=== PATIENT | male | born 1940 | race Caucasian/White ===

== ENCOUNTER 2016-06-29 06:20 | Day surgery (SDC) | payer MEDICARE, OTHER ==
--- NOTE | ~2016-06-29 | EGD ---
EGD REPORT [facility] [address] [place] [address] NAME: CHAR MURPHY : [birth year] STATUS : REG [facility]#: [id number] AGE: 76 ADM/REG DATE : 06/29/16 MR#: [id number] REPORT SERV DATE: 06/29/16 DICTATED BY: CHRIS MORAN DATE: 06/29/16 REPORT STATUS : Draft [facility]ANSCRIBED BY: [facility] DATE: 06/29/16 Endoscopy Center Patient Name: Char Murphy Date of : 1940 Attending MD: CHRIS MORAN MD Procedure Date No Time: 06/29/2016 Procedure: Upper GI endoscopy Indications: Heartburn, Suspected esophageal reflux, Unexplained chest pain, Nausea Referring MD: RITA MELENDEZ Medicines: as per anesthesia Complications: No immediate complications. Procedure: After obtaining informed consent, the endoscope was passed under direct vision. Throughout the procedure, the patient's blood pressure, pulse, and oxygen saturations were monitored continuously. The GIF [id number] was introduced through the mouth, and advanced to the third part of duodenum. The upper GI endoscopy was accomplished without difficulty. The patient tolerated the procedure. Findings: Patchy candidiasis was found in the middle third of the esophagus. brushings done The entire examined stomach was normal. The cardia and gastric fundus were normal on retroflexion. The examined duodenum was normal. Impression: - Monilial esophagitis. - Normal stomach. - Normal examined duodenum. Recommendation: - Follow an antireflux regimen. - Continue present medications. - Await pathology results. Procedure Code(s): --- Professional --- 81409, Esophagogastroduodenoscopy, flexible, transoral; diagnostic, including collection of specimen(s) by brushing or washing, when performed (separate procedure) Diagnosis Code(s): --- Professional --- B37.81, Candidal esophagitis R12, Heartburn R07.9, Chest pain, unspecified EGD REPORT [facility] [address] [facility] [place]. [address] NAME: CHAR MURPHY : [birth year] STATUS : [place] [facility] [place] [id number] AGE: 76 ADM/REG DATE : 06/29/16 MR#: [id number] REPORT SERV DATE: 06/29/16 DICTATED BY: CHRIS MORAN. DATE: 06/29/16 REPORT STATUS : Draft TRANSCRIBED BY: [employer] DATE: 06/29/16 R11.0, Nausea CPT copyright 2013 [employer]. All rights reserved. The codes documented in this report are preliminary and upon modeling instructor review may be revised to meet current compliance requirements. CHRIS MORAN MD 06/29/2016 8:56 AM This report has been signed electronically. Number of Addenda: 0 Note Initiated On: 06/29/2016 8:30 AM Scope Withdrawal Time 0 hours 0 minutes 0 seconds [address] [place] [address]
[~2016-06-29 06:20] MED LIST: COREG12 PO; COREG25 PO; LIPITOR40 PO; PRILOSEC OTC20 MG PO; PRILOSEC40 MG PO; SYMBICORT 160/41 INH INH; VIAGRA100 MG PO
[2016-09-23] MEDS ORDERED: NORV5 PO (15:48)
[2016-09-28] MEDS ORDERED: TRAZ50 PO (20:07)
[2016-09-28] MEDS ORDERED: SYMBICORT 160/41 INH INH (20:07)
[2016-09-28] MEDS ORDERED: PRILOSEC40 MG PO (20:08)
[2016-09-28] MEDS ORDERED: COREG25 PO (20:08)
[2016-09-28] MEDS ORDERED: LIPITOR40 PO (20:08)
[2016-09-28] MEDS ORDERED: NORV25 PO (20:10)
[2016-09-28] MEDS ORDERED: VIAGRA100 MG PO (20:11)
[2016-09-30] MEDS ORDERED: CORDARONE PO (10:24)
[2016-09-30] MEDS ORDERED: ELIQUIS 5 MG TAB5 MG PO (10:25)
== END 2016-06-29 23:59 | disposition home or self-care (01) ==
LOC: DMU 06:20
PROVIDERS: Internal Medicine Gastroenterology
PROC: 0DJ08ZZ Inspection of Upper Intestinal Tract, Via Natural or Artificial Opening Endoscopic (ICD-10-PCS; principal; 2016-06-29 08:00)
DX: B37.81 Candidal esophagitis (principal); I10 Essential (primary) hypertension; E78.00 Pure hypercholesterolemia, unspecified; K21.9 Gastro-esophageal reflux disease without esophagitis; J44.9 Chronic obstructive pulmonary disease, unspecified; Z79.899 Other long term (current) drug therapy; Z98.890 Other specified postprocedural states
CPT/HCPCS: 87210